=== PATIENT | male | born 1995 | race Caucasian/White ===

== ENCOUNTER 2018-12-21 12:43 | Emergency (ER) | payer OTHER ==
[2018-12-21] MEDS ORDERED: ACETAMINOPHEN 325 MG TABLET (FP) PO ONE (12:51)
[2018-12-21] MEDS ORDERED: ACETAMINOPHEN 325 MG TABLET (FP) ONE (12:53)
[2018-12-21 12:59] VITALS: BMI 20.2
--- NOTE | 2018-12-21 13:13 | PDOC ---
History of Present Illness - General Chief Complaint: Sore Throat Stated Complaint: PERSISTENT SORE THROAT Time Seen by Provider: 12/21/18 12:51 History Source: Patient Exam Limitations: No Limitations - History of Present Illness Initial Comments: 12/21/18 13:07 23y M no pmhx presents with fever and jaison throat. On the 12/06, the pt initially had headache, neck pain, he went to [facility], had blood work that showed slightly elevated LFTs (in the 80s) and neg monospot, neg for acute lyme exposure, was given doxy but pt hadnt started it. on the , the pt went to [facility] with persistent symptoms including fever, sore throat and was tested for strep (neg rapid strep), was started on clarythromycin that he is currently still on. he came in today due to persistent sore throat. Pt denies any n/v, current headache, neck pain, cough, abd pain, back pain, abd pain, dysuria, diarrhea. Vaccinations UTD. +allergy to amoxicillin no recent travel or possible tick exposures no sick contacts social: social etoh, denies recreational drug use, smoking Past History - Past Medical History Allergies/Adverse Reactions: Allergies Allergy/AdvReac Type Severity Reaction Status Date / Time amoxicillin Allergy Verified 12/21/18 12:48 Home Medications: Ambulatory Orders Clarithromycin [Biaxin -] 500 mg PO BID 12/21/18 COPD: No Other medical history: denies - Immunization History Immunization Up to Date: Yes - Suicide/Smoking/Psychosocial Hx Smoking History: Never smoked Have you smoked in the past 12 months: No Information on smoking cessation initiated: No Hx Alcohol Use: No Review of Systems - Review of Systems Able to Perform ROS?: Yes Comments:: 12/21/18 13:51 Constitutional - +fever no reported Chills, HEENT: +sore throat, no reported vision changes, ear pain Respiratory: no reported cough, sob, hemoptysis Cardiac: no reported chest pain, palpitations, light headedness, leg swelling Abd/GI: no reported abd pain, nausea, vomiting, blood per rectum, melena, diarrhea : no reported dysuria, frequency, discharge Musculskelatal - no reported back pain, joint swelling skin - no reported bruising, erythema, rash neurological: no reported headache, numbness, focal weakness, tingling, ataxia, hematologic: no reported easy bruising, easy bleeding *Physical Exam - Vital Signs Last Vital Signs Temp Pulse Resp BP Pulse Ox 100.3 F H 101 H 20 120/73 100 12/21/18 12:43 12/21/18 12:43 12/21/18 12:43 12/21/18 12:43 12/21/18 12:43 - Physical Exam Comments: 12/21/18 13:52 GENERAL: The patient is awake, alert, and fully oriented, Nontoxic - in no acute distress. HEAD: Normocephalic, atraumatic. EYES: extraocular movements intact, sclera anicteric, conjunctiva clear. ENT: +erythamdaous posterior pharynx, +exudates, Normal voice, no stridor NECK: Normal range of motion, supple, no cervical lympadenopathy LUNGS: Breath sounds equal, clear to auscultation bilaterally. No wheezes, no rhonchi, no rales. HEART: Regular rate and rhythm, normal S1 and S2 without murmur, rub or gallop. ABDOMEN: Soft, nontender, No guarding, no rebound. No CVA tenderness, no splenomegaly or hepatomegaly EXTREMITIES: Normal range of motion, no edema. NEUROLOGICAL: No facial assymetry, Normal speech, PSYCH: Normal mood, normal affect. SKIN: Warm, Dry, normal turgor, no rashes ED Treatment Course - LABORATORY CBC & Chemistry Diagram: 12/21/18 14:00 12/21/18 14:00 Medical Decision Making - Medical Decision Making 12/21/18 13:53 suspect viral vs bacterial pharyngitis will ck labs as pt had elevated LFTs yeny estrada rapid strep will give decadron / ibuprofen for symptmatatic relief 12/21/18 ~15:00 (this was documented after pt was discharged) pt was evluated prior to discharge and wqas doing well. throat feels improved tolerating oral intake labs reviewed pt dc with supportive care and ENT fu *DC/Admit/Observation/Transfer Diagnosis at time of Disposition: Elevated liver enzymes Pharyngitis Qualifiers: Pharyngitis/tonsillitis etiology: other specified organisms Qualified Code(s): J02.8 - Acute pharyngitis due to other specified organisms - Discharge Dispostion Disposition: HOME Condition at time of disposition: Stable Decision to Admit order: No - Referrals Referrals: Mike Gardner MD [Staff Physician] - - Patient Instructions Printed Discharge Instructions: DI for Pharyngitis/Tonsillopharyngitis -- Adult Additional Instructions: Return to the emergency department immediately with ANY new, persistent or worsening symptoms including inability to tolerate oral intake abdominal pain or any other concerns. continue taking the antibiotics. Your Liver enzymes were elevated - please follow this with your primary care doctor. You MUST call and follow up with your doctor in 3-4 days for further evaluation of your symptoms. Results were discussed with you. Please make sure your doctor reviews the results of your emergency evaluation. Your Emergency Department visit is not complete without a follow up with your doctor. Print Language: LATVIAN - Post Discharge Activity
[2018-12-21] MEDS ORDERED: IBUPROFEN 400 MG TABLET (FP) PO ONE ×2 (13:16→13:58)
[2018-12-21] MEDS ORDERED: DEXAMETHASONE SOD PHOSPHATE 10 MG/1 ML VIAL IVPUSH ONE (13:41)
[2018-12-21] MEDS ORDERED: DEXAMETHASONE SOD PHOSPHATE 10 MG/1 ML VIAL ONE (13:42)
[2018-12-21 14:18] LABS: BASO % 1.2 % (0-2.0); EOS % 0.6 % (0-4.5); HEMOGLOBIN 14.4 GM/dl (11.7-16.9); LYMPH % 42.2 % (8-40); MCH 28.9 pg (25.7-33.7); MCHC 33.6 g/dl (32.0-35.9); MEAN PLT VOLUME 7.8 fl (7.5-11.1); MONO % 11.4 % (3.8-10.2); NEUT % 44.6 % (42.8-82.8); PLATELET COUNT 309 K/MM3 (134-434); RDW 11.8 % (11.9-15.9); WHITE BLOOD COUNT 12.2 K/mm3 (4.0-10.8)
[2018-12-21 14:22] LABS: ALBUMIN 4.1 g/dl (3.4-5.0); BILIRUBIN,TOTAL 1.7 mg/dl (0.2-1); CALCIUM 9.4 mg/dl (8.5-10); CREATININE 0.7 mg/dl (0.55-1.3); POTASSIUM 4.4 mmol/L (3.5-5.1); TOT PROT 7.7 g/dl (6.4-8.2)
[2018-12-21 14:44] VITALS: BP 116/68; PULSE 88; TEMP 99
== END 2018-12-21 14:50 | disposition home or self-care (01) ==
LOC: FER 12:43
PROC: 3E033GC Introduction of Other Therapeutic Substance into Peripheral Vein, Percutaneous Approach (ICD-10-PCS; principal; 2018-12-21)
DX: J02.8 Acute pharyngitis due to other specified organisms (principal); B97.89 Other viral agents as the cause of diseases classified elsewhere; R94.5 Abnormal results of liver function studies
CPT/HCPCS: 36415; 80053; 85025; 87070; 87077; 87880; 99284-25; J1100